=== PATIENT | female | born 1990 | race American Indian/Alaskan Native ===

== ENCOUNTER 2021-01-03 21:05 | Emergency (ER) | payer SELFPAY | END 2021-01-03 21:10 | disposition left against medical advice (07) | LOC: ED 21:05 | DX: R05 Cough (principal); Z53.21 Procedure and treatment not carried out due to patient leaving prior to being seen by health care provider ==

== ENCOUNTER 2021-01-30 08:42 | Emergency (ER) | payer MEDICAID ==
[2021-01-30] MEDS ORDERED: SODIUM CHLORIDE 0.9% 1000 ML 1,000 ML IV ONE (09:48)
[2021-01-30] MEDS ORDERED: ONDANSETRON 4 MG/2 ML INJ IV ONE (09:48)
[2021-01-30] MEDS ORDERED: MORPHINE 2 MG/1 ML INJ IV ONE (09:49)
--- NOTE | 2021-01-30 09:50 | Emergency Department Report ---
ED N/V/D HPI - General Chief complaint: Nausea/Vomiting/Diarrhea Stated complaint: DIARRHEA, VOMITING, MIGRAINE, BODY ACHES PUI?: No Time Seen by Provider: 01/30/21 09:36 Source: patient Mode of arrival: Ambulatory Limitations: No Limitations - History of Present Illness Initial comments: 30-year-old female who reports no significant past medical history presents to the ER today with complaints of nausea, vomiting, diarrhea and lower abdominal pain. Patient states that her symptoms started last night. She states that she vomited about 3-4 times since his symptoms started. She states that emesis was mainly food or liquid. She states that she has had multiple episodes of watery stools since this morning. She denies any mucus, melena or hematochezia. She reports no abdominal pain has been constant and radiates around into her back. She reports increased lower abdominal pain when she urinates and urinary frequency but denies any dysuria or hematuria. She reports associated WHITAKER. She reports no abnormal vaginal symptoms. She denies any fever or chills. She denies any ill contacts or recent bad food intake or recent travel. She states that her last menstrual cycle was about a week ago. MD complaint: nausea, vomiting, diarrhea, abdominal pain -: days(s) (1) - Related Data Previous Rx's Medication Instructions Recorded Last Taken Type Dicyclomine [Bentyl] 10 mg PO QID PRN #40 capsule 01/30/21 Unknown Rx Ondansetron [Zofran Odt] 4 mg PO Q8HR PRN #12 tab.rapdis 01/30/21 Unknown Rx Allergies Allergy/AdvReac Type Severity Reaction Status Date / Time Penicillins Allergy Intermediate Itching Verified 01/30/21 08:51 clindamycin Allergy Angioedema Verified 01/30/21 08:52 hydrocodone AdvReac Nausea Verified 01/30/21 08:53 tramadol AdvReac Nausea Verified 01/30/21 08:53 ED Review of Systems ROS: Stated complaint: DIARRHEA, VOMITING, MIGRAINE, BODY ACHES Other details as noted in HPI Comment: All other systems reviewed and negative Constitutional: denies: chills, fever Eyes: denies: eye pain, eye discharge, vision change ENT: denies: ear pain, throat pain, dental pain, hearing loss, epistaxis, congestion Respiratory: denies: cough, orthopnea, shortness of breath, SOB with exertion, SOB at rest, wheezing Cardiovascular: denies: chest pain, palpitations, dyspnea on exertion, edema, syncope, paroxysmal nocturnal dyspnea Gastrointestinal: abdominal pain, nausea, vomiting, diarrhea Genitourinary: frequency Musculoskeletal: back pain Skin: denies: rash, lesions Neurological: headache. denies: weakness, numbness, paresthesias, confusion, abnormal gait, vertigo Psychiatric: denies: anxiety, depression, auditory hallucinations, visual hallucinations, homicidal thoughts, suicidal thoughts Hematological/Lymphatic: denies: easy bleeding, easy bruising ED Past Medical Hx - Past Medical History Previous Medical History?: No - Surgical History Past Surgical History?: Yes Additional Surgical History: abdominal surgery - Medications Home Medications: Home Medications Medication Instructions Recorded Confirmed Last Taken Type Dicyclomine [Bentyl] 10 mg PO QID PRN #40 capsule 01/30/21 Unknown Rx Ondansetron [Zofran Odt] 4 mg PO Q8HR PRN #12 tab.rapdis 01/30/21 Unknown Rx ED Physical Exam - General Limitations: No Limitations General appearance: alert, in no apparent distress - Head Head exam: Present: atraumatic, normocephalic, normal inspection - Eye Eye exam: Present: normal appearance, PERRL, EOMI Pupils: Present: normal accommodation - ENT ENT exam: Present: normal exam, mucous membranes moist - Neck Neck exam: Present: normal inspection, full ROM - Respiratory Respiratory exam: Present: normal lung sounds bilaterally. Absent: respiratory distress, wheezes, rales, rhonchi - Cardiovascular Cardiovascular Exam: Present: regular rate, normal rhythm, normal heart sounds - GI/Abdominal GI/Abdominal exam: Present: soft, tenderness (RLQ, LLQ and periumbilical area ), guarding (mainly with periumbilical ttp). Absent: rebound, rigid - Back Exam Back exam: Present: normal inspection, full ROM, CVA tenderness (L) - Neurological Exam Neurological exam: Present: alert, oriented X3, CN II-XII intact, normal gait - Psychiatric Psychiatric exam: Present: normal affect, normal mood - Skin Skin exam: Present: intact ED Course Vital Signs 01/30/21 01/30/21 08:55 12:10 Temperature 98.4 F Pulse Rate 97 H 81 Respiratory 16 Rate Blood Pressure 156/104 115/77 [Left] O2 Sat by Pulse 98 100 Oximetry ED Medical Decision Making - Lab Data Result diagrams: 01/30/21 09:52 01/30/21 09:52 - Medical Decision Making 1143: Patient currently resting comfortably. She is not currently in any acute distress. She is not toxic or ill-appearing. She is neurologically intact She reports no nausea or vomiting after medication. She denies any diarrhea during stay. She is actually asking for something to drink and she was able to tolerate p.o. fluids without vomiting.. She reports improvement of her abdominal pain after after IV morphine. Repeat abdominal exam shows a soft nontender abdomen. Labs reviewed and unremarkable. Her history, exam, diagnostic testing and current condition do not suggest acute appendicitis, bowel obstruction, acute cholecystitis, bowel perforation, major GI bleed, severe diverticulitis, abdominal aortic aneurysm, mesenteric ischemia, volvulus, sepsis or other significant pathology to warrant further testing, continued ED treatment, admission or surgical evaluation at this point. Suspect gastroenteritis at this time. Discussed lab results, suspected diagnosis and treatment plan with patient. She expressed understanding of instructions and agree with plan. Patient was stable at time of discharge. Critical care attestation.: If time is entered above; I have spent that time in minutes in the direct care of this critically ill patient, excluding procedure time. ED Disposition Clinical Impression: Gastroenteritis Disposition: DC-01 TO HOME OR SELFCARE Is pt being admited?: No Does the pt Need Aspirin: No Condition: Stable Instructions: Viral Gastroenteritis, Adult, [id number], [place] Diet Additional Instructions: Recommend I take the Zofran as needed for nausea and the Bentyl as needed for abdominal cramping. Recommend that you do a bland diet as discussed. You can follow the bland diet discharge instructions given. Drink lots of fluids. Follow-up closely with your primary care doctor. Return to the ER if your symptoms changes or worsens in any way. Prescriptions: Dicyclomine [Bentyl] 10 mg PO QID PRN #40 capsule PRN Reason: Abdominal cramping Ondansetron [Zofran Odt] 4 mg PO Q8HR PRN #12 tab.rapdis PRN Reason: nausea/vomiting Referrals: PRIMARY MD KIERSTEN [Primary Care Provider] - 3-5 Days ELZBIETA FUNG MD [Staff Physician] - 3-5 Days Forms: Work/School Release Form(ED) Time of Disposition: 11:47
[2021-01-30 10:25] LABS: Basophils % (Auto) 0.6 % (0.0-1.8); Eosinophils # (Auto) 0.2 K/mm3 (0.0-0.4); Eosinophils % (Auto) 4.4 % (0.0-4.3); Hemoglobin 12.1 gm/dl (10.1-14.3); Lymphocytes # (Auto) 0.9 K/mm3 (1.2-5.4); Lymphocytes % (Auto) 16.9 % (13.4-35.0); Monocytes # (Auto) 0.1 K/mm3 (0.0-0.8); Monocytes % (Auto) 2.5 % (0.0-7.3)
[2021-01-30 10:33] LABS: Hematocrit 36.5 % (30.3-42.9); Mean Corpuscular HGB Conc 34 % (30-34); Mean Corpuscular Volume 91 fl (79-97); Platelet Count 344 K/mm3 (140-440); Red Blood Count 4.01 M/mm3 (3.65-5.03); Red Cell Distribution Width 15.4 % (13.2-15.2)
[2021-01-30 11:21] LABS: Alanine Aminotransferase 20 units/L (7-56); BUN/Creatinine Ratio 11; Blood Urea Nitrogen 9 mg/dL (7-17); Hemolysis Index 6
[2021-01-30 11:36] LABS: HCG Qualitative,Urine Negative (Negative)
[2021-01-30 11:38] LABS: Bacteria,Urine 1+ /HPF (Negative); Bilirubin,Urine NEG (Negative); Blood,Urine NEG (Negative); Color,Urine Yellow (Yellow); Mucus,Urine FEW /HPF; Protein,Urine <15 mg/dL mg/dL (Negative); Urobilinogen,Urine < 2.0 mg/dL (<2.0)
[2021-01-30 11:49] LABS: WBC,Urine < 1.0 /HPF (0.0-6.0)
[2021-01-30 12:16] VITALS: BP 115/77
== END 2021-01-30 12:14 | disposition home or self-care (01) ==
LOC: ED 08:42
DX: R11.2 Nausea with vomiting, unspecified (principal); R19.7 Diarrhea, unspecified; R10.30 Lower abdominal pain, unspecified; Z98.890 Other specified postprocedural states; Z79.899 Other long term (current) drug therapy; Z88.0 Allergy status to penicillin; Z88.8 Allergy status to other drugs, medicaments and biological substances
CPT/HCPCS: 36415; 80053; 81001; 81025; 83690; 85025; 96361; 96374; 96375; 99283; J2270; J2405; J7030

== ENCOUNTER 2021-02-06 07:36 | Emergency (ER) | payer SELFPAY ==
[2021-02-06 07:50] VITALS: BP 142/101
[2021-02-06] MEDS ORDERED: IBUPROFEN 600 MG TAB PO ONE (10:04)
--- NOTE | 2021-02-06 10:11 | Emergency Department Report ---
- General Chief Complaint: Dyspnea/Respdistress Stated Complaint: CHEST PAIN, SORE THROAT, COUGH Time Seen by Provider: 02/06/21 10:03 Source: patient Mode of arrival: Ambulatory Limitations: No Limitations - History of Present Illness Initial Comments: 30-year-old -[place] female presents to the emergency room complaining of sore throat x1 week coughing sneezing. She states she has chest pain when she coughs or sneezes. Patient states that she has some wheezing. Patient reports she has been taking [id number] Shen's NyQuil and Robitussin. Patient states she had a Covid negative test on Friday from [facility]. She does not have a primary care provider and last menstrual period was 01/12/2021. Patient has multiple allergies to medications to penicillin clindamycin hydrocodone and tramadol. MD Complaint: cough, sore throat, nasal congestion, other (Sneezing) - Related Data Previous Rx's Medication Instructions Recorded Last Taken Type Dicyclomine [Bentyl] 10 mg PO QID PRN #40 capsule 01/30/21 Unknown Rx Ondansetron [Zofran Odt] 4 mg PO Q8HR PRN #12 tab.rapdis 01/30/21 Unknown Rx Benzonatate [Tessalon Perles] 100 mg PO Q8HR #15 capsule 02/06/21 Unknown Rx Cetirizine HCl [Zyrtec 10mg tab] 10 mg PO QDAY #15 tablet 02/06/21 Unknown Rx Fluticasone [Flonase] 1 spray NS QDAY #1 bottle 02/06/21 Unknown Rx Allergies Allergy/AdvReac Type Severity Reaction Status Date / Time Penicillins Allergy Intermediate Itching Verified 01/30/21 08:51 clindamycin Allergy Angioedema Verified 01/30/21 08:52 hydrocodone AdvReac Nausea Verified 01/30/21 08:53 tramadol AdvReac Nausea Verified 01/30/21 08:53 ED Review of Systems ROS: Stated complaint: CHEST PAIN, SORE THROAT, COUGH Other details as noted in HPI ED Past Medical Hx - Past Medical History Previous Medical History?: No - Surgical History Additional Surgical History: abdominal surgery, leg surgery - Social History Smoking Status: Unknown if ever smoked - Medications Home Medications: Home Medications Medication Instructions Recorded Confirmed Last Taken Type Dicyclomine [Bentyl] 10 mg PO QID PRN #40 capsule 01/30/21 Unknown Rx Ondansetron [Zofran Odt] 4 mg PO Q8HR PRN #12 tab.rapdis 01/30/21 Unknown Rx Benzonatate [Tessalon Perles] 100 mg PO Q8HR #15 capsule 02/06/21 Unknown Rx Cetirizine HCl [Zyrtec 10mg tab] 10 mg PO QDAY #15 tablet 02/06/21 Unknown Rx Fluticasone [Flonase] 1 spray NS QDAY #1 bottle 02/06/21 Unknown Rx ED Physical Exam - General Limitations: No Limitations General appearance: alert, in no apparent distress - Head Head exam: Present: atraumatic, normocephalic - Eye Eye exam: Present: normal appearance - ENT ENT exam: Present: mucous membranes moist, TM's normal bilaterally, normal external ear exam - Expanded ENT Exam Expanded Throat exam: Positive: tonsillar erythema. Negative: tonsillar exudate - Neck Neck exam: Present: normal inspection, full ROM - Respiratory Respiratory exam: Present: normal lung sounds bilaterally. Absent: chest wall tenderness, accessory muscle use - Cardiovascular Cardiovascular Exam: Present: regular rate, normal rhythm. Absent: systolic murmur, diastolic murmur, rubs, gallop - Neurological Exam Neurological exam: Present: alert, oriented X3, normal gait - Psychiatric Psychiatric exam: Present: normal affect, normal mood - Skin Skin exam: Present: warm, dry, intact, normal color. Absent: rash ED Course Vital Signs 02/06/21 02/06/21 07:46 10:22 Temperature 97.8 F Pulse Rate 99 H Respiratory 20 16 Rate Blood Pressure 142/101 O2 Sat by Pulse 98 Oximetry ED Medical Decision Making - Medical Decision Making 30-year-old -[place] female presents to the emergency room complaining of sore throat x1 week coughing sneezing. She states she has chest pain when she coughs or sneezes. Patient states that she has some wheezing. Patient reports she has been taking [id number] Shen's NyQuil and Robitussin. Patient states she had a Covid negative test on Friday from [facility]. She does not have a primary care provider and last menstrual period was 01/12/2021. Patient has multiple allergies to medications to penicillin clindamycin hydrocodone and tramadol. Strep test sent. If negative patient will be treated for allergic rhinitis. Strep test negative patient be discharged home with instructions to take Zyrtec's, Flonase and Tessalon Perles. Follow-up with your primary care provider. Critical care attestation.: If time is entered above; I have spent that time in minutes in the direct care of this critically ill patient, excluding procedure time. ED Disposition Clinical Impression: Allergic rhinitis Disposition: DC- TO HOME OR SELFCARE Is pt being admited?: No Does the pt Need Aspirin: No Condition: Stable Instructions: Allergic Rhinitis, Adult, [id number] Additional Instructions: Strep test is negative. Please take medication as prescribed. Follow-up with a primary care provider. Prescriptions: Fluticasone [Flonase] 1 spray NS QDAY #1 bottle Benzonatate [Tessalon Perles] 100 mg PO Q8HR #15 capsule Cetirizine HCl [Zyrtec 10mg tab] 10 mg PO QDAY #15 tablet Referrals: PRIMARY CARE, [Primary Care Provider] - 3-5 Days [facility] [Provider Group] - 3-5 Days Forms: Work/School Release Form(ED) Time of Disposition: 10:53
== END 2021-02-06 11:14 | disposition home or self-care (01) ==
LOC: ED 07:36
DX: J30.9 Allergic rhinitis, unspecified (principal); Z88.0 Allergy status to penicillin; Z88.8 Allergy status to other drugs, medicaments and biological substances; Z79.899 Other long term (current) drug therapy; Z98.890 Other specified postprocedural states
CPT/HCPCS: 87116; 87430

== ENCOUNTER 2021-05-15 05:39 | Emergency (ER) | payer MEDICAID ==
[2021-05-15] MEDS ORDERED: SODIUM CHLORIDE 0.9% 1000 ML 1,000 ML IV ONE (06:34)
[2021-05-15] MEDS ORDERED: ONDANSETRON 4 MG/2 ML INJ IV ONE (06:34)
[2021-05-15] MEDS ORDERED: SODIUM CHLORIDE 0.9% 1000 ML 1,000 ML ONE (06:35)
[2021-05-15] MEDS ORDERED: ONDANSETRON 4 MG/2 ML INJ ONE (06:35)
--- NOTE | 2021-05-15 07:00 | XRay Report ---
CHEST PA AND LATERAL VIEWS INDICATION: Chest Pain. COMPARISON: None. FINDINGS: Support devices: None. Heart: Within normal limits. Lungs/Pleura: No acute pulmonary or pleural findings. IMPRESSION: 1. No acute findings. Signer Name: Beau Paniagua MD Signed: 05/15/2021 6:56 AM Workstation Name: [id number]
[2021-05-15 07:26] LABS: Basophils # (Auto) 0.1 K/mm3 (0.0-0.1); Eosinophils # (Auto) 0.2 K/mm3 (0.0-0.4); Hematocrit 35.9 % (30.3-42.9); Hemoglobin 11.8 gm/dl (10.1-14.3); Lymphocytes % (Auto) 36.3 % (13.4-35.0); Mean Corpuscular HGB Conc 33 % (30-34); Mean Corpuscular Volume 91 fl (79-97); Monocytes # (Auto) 0.3 K/mm3 (0.0-0.8); Monocytes % (Auto) 5.8 % (0.0-7.3); Platelet Count 348 K/mm3 (140-440); Red Blood Count 3.96 M/mm3 (3.65-5.03); Red Cell Distribution Width 15.2 % (13.2-15.2)
[2021-05-15 07:42] LABS: Alanine Aminotransferase 15 units/L (7-56); Albumin 3.5 g/dL (3.9-5); Blood Urea Nitrogen 6 mg/dL (7-17); Calcium 7.9 mg/dL (8.4-10.2); Hemolysis Index 16
[2021-05-15 07:51] LABS: BUN/Creatinine Ratio 9
[2021-05-15] MEDS ORDERED: MORPHINE 2 MG/1 ML INJ IV ONE (08:00)
[2021-05-15] MEDS ORDERED: POTASSIUM CHLORIDE ER 20 MEQ TAB PO ONE (08:01)
--- NOTE | 2021-05-15 08:13 | Emergency Department Report ---
ED Chest Pain HPI - General Chief Complaint: Chest Pain Stated Complaint: CHEST PAIN/HEADACHE Time Seen by Provider: 05/15/21 07:17 Source: patient Mode of arrival: Ambulatory Limitations: No Limitations - History of Present Illness Initial Comments: This is a 30-year-old female nontoxic, well nourished in appearance, no acute signs of distress presents to the ED with c/o of RUQ abdominal pain, midsternal chest pain with radiation to back and nausea that started last night. Patient describes pain as aching intermittently. Patient denies any upper respiratory symptoms. Patient denies any hemoptysis, fever, chills, vomiting, headache, stiff neck, shortness of breathe, numbness, tingling, abdominal pain. Patient denies pleuritic chest pain. Patient denies any recent travels or long car rides. Patient denies any recent surgeries or any sick contacts. Patient stated allergies to penicillin, clindamycin, hydrocodone and tramadol. MD Complaint: chest pain -: days(s) Pain Location: substernal Pain Radiation: back Severity: mild Severity scale (0 -10): 3 Quality: aching, sharp Consistency: constant Improves With: nothing Worsens With: nothing re: nausea. denies: vomting, diaphoresis, dyspnea, sense of impending doom Other Symptoms: denies: cough, fever, syncope, rash, acid taste in mouth, leg swelling, palpitations, burping Treatments Prior to Arrival: none Aspirin use within the Past 7 Days: (0) No - Related Data Previous Rx's Medication Instructions Recorded Last Taken Type Dicyclomine [Bentyl] 10 mg PO QID PRN #40 capsule 01/30/21 Unknown Rx Ondansetron [Zofran Odt] 4 mg PO Q8HR PRN #12 tab.rapdis 01/30/21 Unknown Rx Benzonatate [Tessalon Perles] 100 mg PO Q8HR #15 capsule 02/06/21 Unknown Rx Cetirizine HCl [Zyrtec 10mg tab] 10 mg PO QDAY #15 tablet 02/06/21 Unknown Rx Fluticasone [Flonase] 1 spray NS QDAY #1 bottle 02/06/21 Unknown Rx Naproxen 500 mg PO Q12H PRN #12 tablet 05/15/21 Unknown Rx Allergies Allergy/AdvReac Type Severity Reaction Status Date / Time Penicillins Allergy Intermediate Itching Verified 01/30/21 08:51 clindamycin Allergy Angioedema Verified 01/30/21 08:52 hydrocodone AdvReac Nausea Verified 01/30/21 08:53 tramadol AdvReac Nausea Verified 01/30/21 08:53 Heart Score - HEART Score History: Slightly suspicious EKG: Normal Age: < 45 Risk factors: No known risk factors Troponin: < normal limit HEART Score: 0 - EKG Read Time Time EKG Completed: 06:55 EKG Read Time: 07:07 (by Dr. Tamayo) - Critical Actions Critical Actions: 0-3 pts:0.9-1.7%risk of adverse cardiac event.Candidate for discharge ED Review of Systems ROS: Stated complaint: CHEST PAIN/HEADACHE Other details as noted in HPI Constitutional: denies: chills, fever Eyes: denies: eye pain, eye discharge, vision change ENT: denies: ear pain, throat pain, congestion Respiratory: denies: cough, shortness of breath, wheezing Cardiovascular: chest pain. denies: palpitations, dyspnea on exertion, orthopnea, edema, syncope, paroxysmal nocturnal dyspnea Endocrine: no symptoms reported Gastrointestinal: abdominal pain, nausea. denies: vomiting, diarrhea, constipation, hematemesis, melena, hematochezia Genitourinary: denies: urgency, dysuria, discharge Musculoskeletal: denies: back pain, joint swelling, arthralgia Skin: denies: rash, lesions Neurological: denies: headache, weakness, paresthesias Psychiatric: denies: anxiety, depression Hematological/Lymphatic: denies: easy bleeding, easy bruising ED Past Medical Hx - Past Medical History Previous Medical History?: No - Surgical History Past Surgical History?: No Additional Surgical History: abdominal surgery, leg surgery - Social History Smoking Status: Unknown if ever smoked - Medications Home Medications: Home Medications Medication Instructions Recorded Confirmed Last Taken Type Dicyclomine [Bentyl] 10 mg PO QID PRN #40 capsule 01/30/21 Unknown Rx Ondansetron [Zofran Odt] 4 mg PO Q8HR PRN #12 tab.rapdis 01/30/21 Unknown Rx Benzonatate [Tessalon Perles] 100 mg PO Q8HR #15 capsule 02/06/21 Unknown Rx Cetirizine HCl [Zyrtec 10mg tab] 10 mg PO QDAY #15 tablet 02/06/21 Unknown Rx Fluticasone [Flonase] 1 spray NS QDAY #1 bottle 02/06/21 Unknown Rx Naproxen 500 mg PO Q12H PRN #12 tablet 05/15/21 Unknown Rx ED Physical Exam - General Limitations: No Limitations General appearance: alert, in no apparent distress - Head Head exam: Present: atraumatic, normocephalic - Eye Eye exam: Present: normal appearance - Neck Neck exam: Present: normal inspection, full ROM. Absent: tenderness, meningismus, lymphadenopathy - Respiratory Respiratory exam: Present: normal lung sounds bilaterally. Absent: respiratory distress, wheezes, rales, rhonchi, stridor, chest wall tenderness, accessory muscle use, decreased breath sounds, prolonged expiratory - Cardiovascular Cardiovascular Exam: Present: normal rhythm, tachycardia, normal heart sounds. Absent: bradycardia, irregular rhythm, systolic murmur, diastolic murmur, rubs, gallop - GI/Abdominal GI/Abdominal exam: Present: soft, tenderness (RUQ), normal bowel sounds. Absent: distended, guarding, rebound, rigid, diminished bowel sounds - Extremities Exam Extremities exam: Present: normal inspection, full ROM, normal capillary refill. Absent: tenderness - Back Exam Back exam: Present: normal inspection, full ROM. Absent: tenderness, CVA tenderness (R), CVA tenderness (L), muscle spasm, paraspinal tenderness, vertebral tenderness, rash noted - Neurological Exam Neurological exam: Present: alert, oriented X3, normal gait - Psychiatric Psychiatric exam: Present: normal affect, normal mood - Skin Skin exam: Present: warm, dry, intact, normal color. Absent: rash ED Course Vital Signs 05/15/21 05/15/21 05/15/21 06:18 08:26 08:31 Temperature 99.0 F Pulse Rate 114 H 92 H Respiratory 20 16 18 Rate Blood Pressure 150/97 [Left] O2 Sat by Pulse 96 100 Oximetry 05/15/21 10:23 Temperature Pulse Rate Respiratory 15 Rate Blood Pressure [Left] O2 Sat by Pulse Oximetry - Reevaluation(s) Reevaluation #1: 05/15/21 08:27 Patient is speaking in full sentences with no signs of distress noted. Reevaluation #2: 05/15/21 12:55 Patient is resting comfortably with no acute signs of distress. Urine is currently pending. Vital signs are stable. JIM score - Jim Score Age > 65: (0) No Aspirin use within the Past 7 Days: (0) No 3 or more CAD Risk Factors: (0) No 2 or more Angina events in past 24 hrs: (0) No Known CAD with more than 50% Stenosis: (0) No Elevated Cardiac Markers: (0) No ST Deviation Greater than 0.5mm: (0) No JIM Score: 0 ED Medical Decision Making - Lab Data Result diagrams: 05/15/21 07:07 05/15/21 07:07 Lab Results 05/15/21 05/15/21 05/15/21 Range/Units 07:07 07:07 07:07 WBC 5.6 (4.5-11.0) K/mm3 RBC 3.96 (3.65-5.03) M/mm3 Hgb 11.8 (10.1-14.3) gm/dl Hct 35.9 (30.3-42.9) % MCV 91 (79-97) fl MCH 30 (28-32) pg MCHC 33 (30-34) % RDW 15.2 (13.2-15.2) % Plt Count 348 (140-440) K/mm3 Lymph % (Auto) 36.3 H (13.4-35.0) % [place] % (Auto) 5.8 (0.0-7.3) % Eos % (Auto) 3.0 (0.0-4.3) % Baso % (Auto) 1.0 (0.0-1.8) % Lymph # (Auto) 2.0 (1.2-5.4) K/mm3 [place] # (Auto) 0.3 (0.0-0.8) K/mm3 Eos # (Auto) 0.2 (0.0-0.4) K/mm3 Baso # (Auto) 0.1 (0.0-0.1) K/mm3 Seg Neutrophils % 53.9 (40.0-70.0) % Seg Neutrophils # 3.0 (1.8-7.7) K/mm3 PT (12.2-14.9) Sec. INR (0.87-1.13) APTT (24.2-36.6) Sec. D-Dimer (0-234) ng/mlDDU Sodium 138 (137-145) mmol/L Potassium 3.5 L (3.6-5.0) mmol/L Chloride 104.9 (98-107) mmol/L Carbon Dioxide 21 L (22-30) mmol/L Anion Gap 16 mmol/L BUN 6 L (7-17) mg/dL Creatinine 0.7 (0.6-1.2) mg/dL Estimated GFR > 60 ml/min BUN/Creatinine Ratio 9 % Glucose 94 (65-100) mg/dL Calcium 7.9 L (8.4-10.2) mg/dL Total Bilirubin 0.30 (0.1-1.2) mg/dL AST 13 (5-40) units/L ALT 15 (7-56) units/L Alkaline Phosphatase 79 (35-129) units/L Troponin T < 0.010 (0.00-0.029) ng/mL Total Protein 6.0 L (6.3-8.2) g/dL Albumin 3.5 L (3.9-5) g/dL Albumin/Globulin Ratio 1.4 % Lipase 11 L (13-60) units/L HCG, Qual (Negative) Urine Color (Yellow) Urine Turbidity (Clear) Urine pH (5.0-7.0) Ur Specific [place] (1.003-1.030) Urine Protein (Negative) mg/dL Urine Glucose (UA) (Negative) mg/dL Urine Ketones (Negative) mg/dL Urine Blood (Negative) Urine Nitrite (Negative) Urine Bilirubin (Negative) Urine Urobilinogen (<2.0) mg/dL Ur Leukocyte Esterase (Negative) Urine WBC (Auto) (0.0-6.0) /HPF Urine RBC (Auto) (0.0-6.0) /HPF U Epithel Cells (Auto) (0-13.0) /HPF Urine Mucus /HPF 05/15/21 05/15/21 05/15/21 Range/Units 07:50 07:50 11:01 WBC (4.5-11.0) K/mm3 RBC (3.65-5.03) M/mm3 Hgb (10.1-14.3) gm/dl Hct (30.3-42.9) % MCV (79-97) fl MCH (28-32) pg MCHC (30-34) % RDW (13.2-15.2) % Plt Count (140-440) K/mm3 Lymph % (Auto) (13.4-35.0) % [place] % (Auto) (0.0-7.3) % Eos % (Auto) (0.0-4.3) % Baso % (Auto) (0.0-1.8) % Lymph # (Auto) (1.2-5.4) K/mm3 [place] # (Auto) (0.0-0.8) K/mm3 Eos # (Auto) (0.0-0.4) K/mm3 Baso # (Auto) (0.0-0.1) K/mm3 Seg Neutrophils % (40.0-70.0) % Seg Neutrophils # (1.8-7.7) K/mm3 PT 13.3 (12.2-14.9) Sec. INR 0.91 (0.87-1.13) APTT 31.9 (24.2-36.6) Sec. D-Dimer 193.91 (0-234) ng/mlDDU Sodium (137-145) mmol/L Potassium (3.6-5.0) mmol/L Chloride (98-107) mmol/L Carbon Dioxide (22-30) mmol/L Anion Gap mmol/L BUN (7-17) mg/dL Creatinine (0.6-1.2) mg/dL Estimated GFR ml/min BUN/Creatinine Ratio % Glucose (65-100) mg/dL Calcium (8.4-10.2) mg/dL Total Bilirubin (0.1-1.2) mg/dL AST (5-40) units/L ALT (7-56) units/L Alkaline Phosphatase (35-129) units/L Troponin T < 0.010 (0.00-0.029) ng/mL Total Protein (6.3-8.2) g/dL Albumin (3.9-5) g/dL Albumin/Globulin Ratio % Lipase (13-60) units/L HCG, Qual Negative (Negative) Urine Color (Yellow) Urine Turbidity (Clear) Urine pH (5.0-7.0) Ur Specific [place] (1.003-1.030) Urine Protein (Negative) mg/dL Urine Glucose (UA) (Negative) mg/dL Urine Ketones (Negative) mg/dL Urine Blood (Negative) Urine Nitrite (Negative) Urine Bilirubin (Negative) Urine Urobilinogen (<2.0) mg/dL Ur Leukocyte Esterase (Negative) Urine WBC (Auto) (0.0-6.0) /HPF Urine RBC (Auto) (0.0-6.0) /HPF U Epithel Cells (Auto) (0-13.0) /HPF Urine Mucus /HPF 05/15/21 Range/Units 12:27 WBC (4.5-11.0) K/mm3 RBC (3.65-5.03) M/mm3 Hgb (10.1-14.3) gm/dl Hct (30.3-42.9) % MCV (79-97) fl MCH (28-32) pg MCHC (30-34) % RDW (13.2-15.2) % Plt Count (140-440) K/mm3 Lymph % (Auto) (13.4-35.0) % [place] % (Auto) (0.0-7.3) % Eos % (Auto) (0.0-4.3) % Baso % (Auto) (0.0-1.8) % Lymph # (Auto) (1.2-5.4) K/mm3 [place] # (Auto) (0.0-0.8) K/mm3 Eos # (Auto) (0.0-0.4) K/mm3 Baso # (Auto) (0.0-0.1) K/mm3 Seg Neutrophils % (40.0-70.0) % Seg Neutrophils # (1.8-7.7) K/mm3 PT (12.2-14.9) Sec. INR (0.87-1.13) APTT (24.2-36.6) Sec. D-Dimer (0-234) ng/mlDDU Sodium (137-145) mmol/L Potassium (3.6-5.0) mmol/L Chloride (98-107) mmol/L Carbon Dioxide (22-30) mmol/L Anion Gap mmol/L BUN (7-17) mg/dL Creatinine (0.6-1.2) mg/dL Estimated GFR ml/min BUN/Creatinine Ratio % Glucose (65-100) mg/dL Calcium (8.4-10.2) mg/dL Total Bilirubin (0.1-1.2) mg/dL AST (5-40) units/L ALT (7-56) units/L Alkaline Phosphatase (35-129) units/L Troponin T (0.00-0.029) ng/mL Total Protein (6.3-8.2) g/dL Albumin (3.9-5) g/dL Albumin/Globulin Ratio % Lipase (13-60) units/L HCG, Qual (Negative) Urine Color Yellow (Yellow) Urine Turbidity Hazy (Clear) Urine pH 5.0 (5.0-7.0) Ur Specific [place] 1.023 (1.003-1.030) Urine Protein <15 mg/dl (Negative) mg/dL Urine Glucose (UA) Neg (Negative) mg/dL Urine Ketones Neg (Negative) mg/dL Urine Blood Neg (Negative) Urine Nitrite Neg (Negative) Urine Bilirubin Neg (Negative) Urine Urobilinogen < 2.0 (<2.0) mg/dL Ur Leukocyte Esterase Neg (Negative) Urine WBC (Auto) 1.0 (0.0-6.0) /HPF Urine RBC (Auto) 10.0 (0.0-6.0) /HPF U Epithel Cells (Auto) 15.0 H (0-13.0) /HPF Urine Mucus 3+ /HPF - EKG Data 05/15/21 12:58 Normal sinus rhythm at [address] or T wave abnormalities. Reviewed and signed by . - Radiology Data [facility] [address] [place] [address] Ultrasound Report Signed Patient: RODNEY HARMON MR# : [id number] : 1990 Acct:[id number] Age/Sex: 30 / F ADM Date: 05/15/21 Loc: ED Attending Dr: Ordering Physician: JAELYN CHAUDHARI NP Date of Service: 05/15/21 Procedure(s): US abdomen limited Accession Number(s): [id number] cc: JAELYN CHAUDHARI NP LIMITED RUQ ABDOMINAL ULTRASOUND INDICATION: epigastric pain and RUQ pain. COMPARISON: No relevant prior imaging study available. FINDINGS: Pancreas: Visualized portions show no significant abnormality. Abdominal Aorta: No significant abnormality. IVC: No significant abnormality. Liver: The liver measures 13 cm in length. No significant abnormality. Normal hepatopedal blood flow in the main portal vein. Gallbladder: No significant abnormality. Bile ducts: No significant abnormality. Common bile duct measures 2.3 mm. Right kidney: No significant abnormality visualized.. Free fluid: None. Additional Findings: None. IMPRESSION: 1. Normal exam. Signer Name: Lee Tomlin MD Signed: 05/15/2021 10:38 AM Workstation Name: [id number] Transcribed By: SONNY Dictated By: Lee Tolmin MD Electronically Authenticated By: Lee Tomlin MD Signed Date/Time: 05/15/21 1038 DD/ 1038 TD/TT: [address] [address] XRay Report Signed Patient: RODNEY HARMON MR# : [id number] : 1990 Acct:[id number] Age/Sex: 30 / F ADM Date: 05/15/21 Loc: ED Attending Dr: Ordering Physician: ED MD ALEXANDER Date of Service: 05/15/21 Procedure(s): XR chest routine 2V Accession Number(s): [id number] cc: ED MD Colette MUNOZ Time In Minutes: CHEST PA AND LATERAL VIEWS INDICATION: Chest Pain. COMPARISON: None. FINDINGS: Support devices: None. Heart: Within normal limits. Lungs/Pleura: No acute pulmonary or pleural findings. IMPRESSION: 1. No acute findings. Signer Name: Beau Paniagua MD Signed: 05/15/2021 6:56 AM Workstation Name: [id number] Transcribed By: Dictated By: Beau Paniagua MD Electronically Authenticated By: Beau Paniagua MD Signed Date/Time: 05/15/21 0656 DD/ 0655 TD/TT: - Medical Decision Making This is a 30-year-old female that presents with atypical chest pain. Patient is stable and was examined by me. JIM and HEART score 0 pints. Negative d- dimmer. EKG normal sinus rhythm with no significant changes in ST. Chest xray and ultrasound of abdomen dictated by the radiologist. PAtient is notified of the imaging report with no questions noted. Labs within normal limits. Negative troponin x2. Patient received treatment in the ED which stated symptoms are improving subsided. Patient was instructed to Follow-up with a primary care/ca rdiologist doctor in 2 days or if symptoms worsen and continue return to emergency room as soon as possible. At time of discharge, the patient does not seem toxic or ill in appearance. No acute signs of distress noted. Patient agrees to discharge treatment plan of care. No further questions noted by the patient. Critical care attestation.: If time is entered above; I have spent that time in minutes in the direct care of this critically ill patient, excluding procedure time. ED Disposition Clinical Impression: Atypical chest pain Disposition: 01 HOME / SELF CARE / HOMELESS Is pt being admited?: No Does the pt Need Aspirin: No Condition: Stable Instructions: Nonspecific Chest Pain, Adult Additional Instructions: Follow-up with a primary care/bacteriologist fishery doctor in 2 days or if symptoms worsen and continue return to emergency room as soon as possible. Prescriptions: Naproxen 500 mg PO Q12H PRN #12 tablet PRN Reason: Pain , Severe (7-10) Referrals: ELZBIETA FUNG MD [Staff Physician] - 3-5 Days PRIMARY MD KIERSTEN [Primary Care Provider] - 3-5 Days ESTIVEN MARQUES MD [Staff Physician] - 05/17/21 Forms: Work/School Release Form(ED) Time of Disposition: 12:58
[2021-05-15 08:34] LABS: INR 0.91 (0.87-1.13)
[2021-05-15 08:35] LABS: Partial Thromboplastin Time 31.9 Sec. (24.2-36.6)
--- NOTE | 2021-05-15 09:13 | Electrocardiograph Report ---
[facility] Test Date: 2021-05-15 Test Time: 06:55:09 Pat Name: RODNEY HARMON Department: Room: Gender: F Health Science Specialist: DUDLEY : 1990 Requested By: ED DOC Order Number: [id number] Reading MD: Dejan Pritchard Measurements Intervals [place] Rate: 67 P: 49 NE: 167 QRS: 32 QRSD: 65 T: 35 QT: 386 QTc: 406 Interpretive Statements Sinus rhythm Atrial premature complex nonspecific st-t No previous ECG available for comparison Electronically Signed On 05-15-2021 9:13:29 EDT by Dejan Pritchard
[2021-05-15] MEDS ORDERED: HYDROmorphone 1 MG/1 ML INJ IV ONE (10:00)
--- NOTE | 2021-05-15 10:44 | Ultrasound Report ---
LIMITED RUQ ABDOMINAL ULTRASOUND INDICATION: epigastric pain and RUQ pain. COMPARISON: No relevant prior imaging study available. FINDINGS: Pancreas: Visualized portions show no significant abnormality. Abdominal Aorta: No significant abnormality. IVC: No significant abnormality. Liver: The liver measures 13 cm in length. No significant abnormality. Normal hepatopedal blood flow in the main portal vein. Gallbladder: No significant abnormality. Bile ducts: No significant abnormality. Common bile duct measures 2.3 mm. Right kidney: No significant abnormality visualized.. Free fluid: None. Additional Findings: None. IMPRESSION: 1. Normal exam. Signer Name: Lee Tomlin MD Signed: 05/15/2021 10:38 AM Workstation Name: [id number]
[2021-05-15 12:58] LABS: Bilirubin,Urine NEG (Negative); Blood,Urine NEG (Negative); Color,Urine Yellow (Yellow); Mucus,Urine 3+ /HPF; Protein,Urine <15 mg/dL mg/dL (Negative); Urobilinogen,Urine < 2.0 mg/dL (<2.0)
[2021-05-15 13:17] VITALS: BP 115/75
== END 2021-05-15 13:16 | disposition home or self-care (01) ==
LOC: ED 05:39
DX: R07.2 Precordial pain (principal); R10.11 Right upper quadrant pain; R11.0 Nausea; R07.89 Other chest pain; Z88.1 Allergy status to other antibiotic agents; Z88.8 Allergy status to other drugs, medicaments and biological substances
CPT/HCPCS: 36415; 71046; 76705; 80053; 81001; 83690; 84484; 84703; 85025; 85379; 85610; 85730; 93005; 96361; 96374; 96375; 99284; J1170; J2270; J2405; J7030

== ENCOUNTER 2021-10-14 21:54 | Emergency (ER) | payer MEDICAID ==
[2021-10-14 22:20] VITALS: BP 161/103
[2021-10-14 23:21] LABS: Bilirubin,Urine NEG (Negative); Blood,Urine NEG (Negative); Color,Urine Straw (Yellow); Protein,Urine <15 mg/dL mg/dL (Negative); RBC,Urine < 1.0 /HPF (0.0-6.0); Urobilinogen,Urine < 2.0 mg/dL (<2.0); WBC,Urine < 1.0 /HPF (0.0-6.0)
[2021-10-14 23:21] LABS: Hematocrit 35.5 % (30.3-42.9); Hemoglobin 11.6 gm/dl (10.1-14.3); Mean Corpuscular HGB Conc 33 % (30-34); Mean Corpuscular Volume 89 fl (79-97); Platelet Count 386 K/mm3 (140-440); Red Blood Count 3.99 M/mm3 (3.65-5.03); Red Cell Distribution Width 15.6 % (13.2-15.2)
[2021-10-14 23:35] LABS: Alanine Aminotransferase 15 units/L (7-56); Albumin 3.9 g/dL (3.9-5); Blood Urea Nitrogen 9 mg/dL (7-17); Calcium 8.3 mg/dL (8.4-10.2); Hemolysis Index 5
[2021-10-14 23:41] LABS: BUN/Creatinine Ratio 13
[2021-10-15 00:25] LABS: Basophils # (Auto) 0.1 K/mm3 (0.0-0.1); Basophils % (Auto) 1.2 % (0.0-1.8); Eosinophils # (Auto) 0.2 K/mm3 (0.0-0.4); Lymphocytes # (Auto) 2.4 K/mm3 (1.2-5.4); Lymphocytes % (Auto) 38.4 % (13.4-35.0); Monocytes # (Auto) 0.3 K/mm3 (0.0-0.8); Monocytes % (Auto) 4.5 % (0.0-7.3)
== END 2021-10-15 02:35 | disposition left against medical advice (07) ==
LOC: ED 21:54
DX: R51.9 Headache, unspecified (principal); K92.0 Hematemesis; Z53.21 Procedure and treatment not carried out due to patient leaving prior to being seen by health care provider
CPT/HCPCS: 36415; 80053; 81001; 85025